=== PATIENT | female | born 1980 | race Caucasian/White ===

== ENCOUNTER 2019-03-03 14:38 | Emergency (ER) | payer OTHER ==
[~2019-03-03] VITALS: Ht 167.6 cm; Wt 77.1 kg
[~2019-03-03 14:38] MED LIST: CEPH-443 PO; METR500T PO
[2019-03-03 15:14] VITALS: BP 117/70; PULSE 69; RESP 18; Ht 167.6 cm; Wt 77.1 kg
[2019-03-03] MEDS ORDERED: FLUCONAZOLE 150 MG TAB PO ONE (16:30)
[2019-03-03] MEDS ORDERED: CEFTRIAXONE 250 MG INJ IM ONE (16:30)
[2019-03-03] MEDS ORDERED: AZITHROMYCIN 500 MG TAB PO ONE (16:30)
--- NOTE | 2019-03-03 17:14 | ERD ---
ER Documentation Chief Complaint Chief Complaint painful urination x5 days HPI 38-year-old female with no reported past medical history presents with 5-day complaint of dysuria and vaginal discharge. Patient states she has been having green-yellowish discharge. She otherwise denies pelvic or abdominal pain. She denies vaginal bleeding. She denies previous history of STDs. She is sexually active with her last on February 04 reports not using condoms. Unsure of 's STD status. She otherwise denies fevers, chills, chest pain, shortness of breath, short dyspnea, nausea, vomiting, abdominal pain or any other concerning symptoms. Patient educated about GC and Chlamydia testing is e lecting to be tested and treated at this time. ROS All systems reviewed and are negative except as per history of present illness. Medications Home Meds Active Scripts Metronidazole* (Flagyl*) 500 Mg Tablet, 500 MG PO BID for 7 Days, TAB Prov:JEUDINE,GETHO PA-C 03/03/19 Cephalexin* (Keflex*) 500 Mg Capsule, 500 MG PO BID for 7 Days, #14 CAP Prov:JEUDINE,GETHO PA-C 03/03/19 Allergies Allergies: Coded Allergies: No Known Allergy (Unverified , 03/03/19) PMhx/Soc Medical and Surgical Hx: pt denies Medical Hx, pt denies Surgical Hx Hx Alcohol Use: No Hx Substance Use: No Hx Tobacco Use: No Smoking Status: Never smoker FmHx Family History: No diabetes, No coronary disease, No other Physical Exam Vitals Vital Signs Date Temp Pulse Resp B/P (MAP) Pulse Ox O2 O2 Flow FiO2 Time Delivery Rate 03/03/19 98.8 69 18 117/70 99 15:14 (86) Physical Exam Const: No acute distress Head: Atraumatic Eyes: Normal Conjunctiva ENT: Normal External Ears, Nose and Mouth. Neck: Full range of motion. No meningismus. Resp: Clear to auscultation bilaterally Cardio: Regular rate and rhythm, no murmurs Abd: Soft, non tender, non distended. Normal bowel sounds Skin: No petechiae or rashes Back: No midline or flank tenderness Ext: No cyanosis, or edema Neur: Awake and alert Psych: Normal Mood and Affect Results 24 hrs Laboratory Tests Test 03/03/19 16:20 Urine Color SRIDEVI Urine Clarity SLIGHTLY CLOUDY Urine pH 5.0 Urine Specific [place] 1.028 Urine Ketones TRACE mg/dL Urine Nitrite NEGATIVE mg/dL Urine Bilirubin NEGATIVE mg/dL Urine Urobilinogen NEGATIVE mg/dL Urine Leukocyte Esterase 3+ Elana/ul Urine Microscopic RBC 7 /HPF Urine Microscopic WBC 6 /HPF Urine Squamous Epithelial Cells MODERATE /HPF Urine Bacteria FEW /HPF Urine Mucus MANY /HPF Urine Hemoglobin 1+ mg/dL Urine Glucose NEGATIVE mg/dL Urine Total Protein NEGATIVE mg/dl Current Medications Medications Dose Sig/Lilliana Start Time Status Last (Trade) Ordered Route PRN Stop Time Admin Dose Reason Admin Fluconazole 150 mg ONCE ONCE 03/03/19 DC 03/03/19 (Diflucan) PO 16:30 03/03/19 16:28 16:31 Ceftriaxone 250 mg ONCE ONCE 03/03/19 DC 03/03/19 Sodium IM 16:30 03/03/19 16:30 (Rocephin) 16:31 1,000 mg ONCE ONCE 03/03/19 DC 03/03/19 Azithromycin PO 16:30 03/03/19 16:30 (Zithromax) 16:31 Procedures/MDM 38-year-old female presents with complaints of dysuria and vaginal discharge. I have low suspicion for genitourinary infection warranting further work-up such as imaging, IV antibiotics, hospitalization such as PID or any other emergent infection. ED course: GC and chlamydia sent. Patient electing to be treated prophylactically. Treated with ceftriaxone and azithromycin. UA with 3+ leukocyte esterase plus symptoms of dysuria, will treat with a course of Keflex, treat for presumed BV with Flagyl antibiotic Patient advised to follow-up with PMD. Patient advised regarding safe sexual practices. DISPOSITION PLAN: We discussed follow up with the patient's primary care doctor within 24 to 48 hours. Patient counseled regarding my diagnostic impression and care plan. Prior to discharge all questions answered. Pt agrees with treatment plan and understands strict return precautions. Precautionary instructions provided including instructions to return to the ER if not improving or for any worsening or changing symptoms or concerns. Disclaimer: Inadvertent spelling and grammatical errors are likely due to EHR/dictation software use and do not reflect on the overall quality of patient care. Also, please note that the electronic time recorded on this note does not necessarily reflect the actual time of the patient encounter. Departure Diagnosis: Primary Impression: Genitourinary symptoms Condition: Stable Patient Instructions: Urinary Tract Infections in Women, Understanding STDs Additional Instructions: Call your primary care doctor TOMORROW for an appointment during the next 2-3 days.See the doctor sooner or return here if your condition worsens before your appointment time. You have been treated in the emergency room for presumed gonorrhea and chlamydia, yeast infection otherwise known as vulvovaginal candidiasis. He has been provided with antibiotics to treat both UTI as well as bacterial vaginosis. Please take antibiotics as prescribed to completion. EDMAR CHATMAN PA-C Mar 03, 2019 17:14
== END 2019-03-03 17:20 | disposition home or self-care (01) ==
LOC: FTE 14:38
DX: N89.8 Other specified noninflammatory disorders of vagina (principal)
CPT/HCPCS: 81001; 87591; 96372; J0696; Z7502; Z7610